=== PATIENT | female | born 1985 | race Caucasian/White ===

== ENCOUNTER 2022-06-30 13:29 | Observation (INO) | payer BC ==
[~2022-06-30] VITALS: Ht 167.6 cm; Wt 90.7 kg
[2022-06-30] MEDS: ONDANSETRON HCL INJ 2MG/ML 2ML 2 MG/ML VIAL IV PRN ×2 (13:50→20:45)
[2022-06-30] MEDS ORDERED: PROMETHAZINE 25MG/ NS 50ML (IV) IV STA (13:58)
[2022-06-30] MEDS ORDERED: HYDRALAZINE HCL 20 MG/ML VIAL IV STA (14:02)
[2022-06-30] MEDS ORDERED: MECLIZINE HCL 12.5 MG TAB PO STA (14:20)
[2022-06-30] MEDS: SODIUM CHLORIDE 0.9% 1000ML 1,000 ML IV SCH ×2 (15:00→22:31)
[2022-06-30 15:30] LABS: BASOPHILS % 0.3 % (0.0-1.0); EOSINOPHILS # (AUTO) 0.1 (0.0-0.4); EOSINOPHILS % 0.7 % (0.0-6.0); HEMATOCRIT 46.4 % (34.2-44.1); HEMOGLOBIN 15.1 g/dL (12.0-16.0); LYMPHOCYTES # (AUTO) 1.1 (1.0-3.2); LYMPHOCYTES % 8.8 % (18.0-39.1); MEAN CORPUSCULAR HEMOGLOBIN 28.2 pg (28-32); MEAN CORPUSCULAR HGB CONC 32.5 g/dL (31-35); MEAN CORPUSCULAR VOLUME 86.7 fL (81-99); MONOCYTES # (AUTO) 0.5 (0.2-0.8); MONOCYTES % 3.7 % (4.4-11.3); NEUTROPHILS # (AUTO) 10.8 (2.1-6.9); PLATELET COUNT 292 x10e3/uL (140-360); RED BLOOD COUNT 5.35 x10e6/uL (3.6-5.1); RED CELL DISTRIBUTION WIDTH 12.2 % (11.7-14.4)
[2022-06-30 15:33] LABS: INR 0.95; PROTHROMBIN TIME 13.6 seconds (11.9-14.5)
[2022-06-30 15:43] LABS: ALBUMIN 4.4 g/dL (3.5-5.0); ALBUMIN/GLOBULIN RATIO 1.1 (0.8-2.0); ANION GAP 16.6 mmol/L (8-16); CALCIUM 9.1 mg/dL (8.4-10.2); CREATININE, SERUM 0.99 mg/dL (0.57-1.11); POTASSIUM 3.6 mmol/L (3.5-5.1)
[2022-06-30] MEDS ORDERED: METOPROLOL TARTRATE INJ 1 MG/ML VIAL IV ONE (15:45)
[2022-06-30 15:53] LABS: CREATINE KINASE 68 IU/L (29-168)
[2022-06-30 16:15] LABS: MAGNESIUM 1.9 MG/DL (1.3-2.1)
[2022-06-30] MEDS: HYDRALAZINE HCL 20 MG/ML VIAL IV PRN (20:49)
[2022-06-30 21:10] VITALS: BP 161/111
[2022-06-30 21:35] VITALS: BP 157/91
[2022-06-30] MEDS ORDERED: LOSARTAN POTAS100 MG PO (21:35)
[2022-06-30 22:00] VITALS: BP 135/87
[2022-06-30 22:24] LABS: CREATINE KINASE 57 IU/L (29-168)
[2022-07-01] VITALS (11 sets, daily range): BP systolic 113–166; BP diastolic 66–125
[2022-07-01] MEDS ORDERED: SODIUM BICARBONATE 8.4% SYRING 100 ML ONE (00:13)
[2022-07-01 04:55] LABS: BASOPHILS % 0.3 % (0.0-1.0); EOSINOPHILS # (AUTO) 0.1 (0.0-0.4); EOSINOPHILS % 0.6 % (0.0-6.0); HEMOGLOBIN 13.8 g/dL (12.0-16.0); LYMPHOCYTES # (AUTO) 2.4 (1.0-3.2); LYMPHOCYTES % 22.5 % (18.0-39.1); MEAN CORPUSCULAR HEMOGLOBIN 28.1 pg (28-32); MEAN CORPUSCULAR HGB CONC 32.1 g/dL (31-35); MEAN CORPUSCULAR VOLUME 87.6 fL (81-99); MONOCYTES # (AUTO) 0.6 (0.2-0.8); MONOCYTES % 5.9 % (4.4-11.3); NEUTROPHILS # (AUTO) 7.4 (2.1-6.9); NEUTROPHILS % 70.4 % (38.7-80.0); PLATELET COUNT 261 x10e3/uL (140-360); RED BLOOD COUNT 4.91 x10e6/uL (3.6-5.1); RED CELL DISTRIBUTION WIDTH 12.3 % (11.7-14.4)
[2022-07-01 05:18] LABS: ALBUMIN 3.8 g/dL (3.5-5.0); ALBUMIN/GLOBULIN RATIO 1.2 (0.8-2.0); ANION GAP 14.3 mmol/L (8-16); CALCIUM 8.6 mg/dL (8.4-10.2); CREATININE, SERUM 0.86 mg/dL (0.57-1.11); POTASSIUM 3.3 mmol/L (3.5-5.1)
[2022-07-01 05:28] LABS: CREATINE KINASE 54 IU/L (29-168)
[2022-07-01] MEDS: SODIUM CHLORIDE 0.9% 1000ML 1,000 ML IV SCH (06:20)
[2022-07-01] MEDS: HYDRALAZINE HCL 20 MG/ML VIAL IV PRN (06:27)
[2022-07-01] MEDS ORDERED: POTASSIUM PHOSPHATE 15 MM in SODIUM CHLORIDE 0.9% 250ML 250 ML IV ONE (08:00)
[2022-07-01] MEDS ORDERED: METOPROLOL TARTRATE INJ 1 MG/ML VIAL IV PRN (10:00)
[2022-07-01] MEDS ORDERED: POTASSIUM CHLORIDE 20 MEQ TAB CR PO ONE (10:15)
[2022-07-01] MEDS ORDERED: LOSARTAN POTASSIUM 100 MG TAB PO SCH (10:30)
[2022-07-01] MEDS ORDERED: TOPROL XL50 MG PO (12:16)
[2022-07-01] MEDS ORDERED: METOPROLOL SUCCINATE 50 MG TAB XL PO SCH (12:30)
[2022-07-01 13:15] LABS: AMPHETAMINES SCREEN,URINE NEGATIVE (NEGATIVE); BENZODIAZEPINES SCREEN,URINE NEGATIVE (NEGATIVE); PHENCYCLIDINE SCREEN,URINE NEGATIVE (NEGATIVE)
[2022-07-01 13:18] LABS: CLARITY,URINE CLEAR (CLEAR); COLOR,URINE YELLOW (YELLOW); EPITHELIAL CELLS,URINE FEW /LPF; KETONES,URINE NEGATIVE (NEGATIVE); LEUKOCYTE ESTERASE ,URINE NEGATIVE (NEGATIVE); NITRITE,URINE NEGATIVE (NEGATIVE); PROTEIN,URINE DIPSTICK NEGATIVE (NEGATIVE); URINE UROBILINOGEN 0.2 mg/dL (0.2 - 1)
[2022-07-01 13:19] LABS: BACTERIA,URINE FEW /HPF; MUCUS,URINE FEW (RARE); RBC,URINE 0-5 /HPF (0-5); WBC,URINE (MAN) 0-5 /HPF (0-5)
[2022-07-01] MEDS ORDERED: FAMOTIDINE 20 MG TAB PO SCH (16:30)
== END 2022-07-01 13:29 | disposition home or self-care (01) ==
LOC: ER 13:34 → ERHOLD 14:54 → ICU 20:57
PROVIDERS: ADMIT Internal Medicine; ATTEND Internal Medicine
DX: I16.0 Hypertensive urgency (principal); I10 Essential (primary) hypertension; Z91.14 Patient's other noncompliance with medication regimen; I49.3 Ventricular premature depolarization; E87.6 Hypokalemia; E83.39 Other disorders of phosphorus metabolism; E66.9 Obesity, unspecified; Z68.32 Body mass index [BMI] 32.0-32.9, adult; Z20.822 Contact with and (suspected) exposure to COVID-19; G45.9 Transient cerebral ischemic attack, unspecified; G43.909 Migraine, unspecified, not intractable, without status migrainosus
CPT/HCPCS: 36415 ×2; 70496; 70498; 71045; 80053 ×2; 80307; 81001; 81025; 82550 ×2; 82553 ×2; 83735; 84100; 84484 ×2; 85025 ×2; 85610; 85730; 93005; 94799; 99285; G0378 ×2; J0360 ×2; J2405; J2550; J7030 ×2; J7050; U0002